=== PATIENT | female | born 1950 | race Hispanic/Latino ===

== ENCOUNTER 2018-12-09 08:55 | Outpatient (CLI) | payer MEDICARE ==
--- NOTE | 2018-12-10 15:45 | Mammography Report ---
BONE DEXA CLINICAL: Postmenopausal TECHNIQUE: 2 site bone DEXA performed on an Hologic scanner. FINDINGS: The average BMD of the lumbar spine L1-L4 is 0.823g/cm squared with a T score of -2.0 and a Z score o f -0.1. The average total BMD of the left hip is 0.631 g/cm squared with a T score of -2.5and a Z score of -1 .2. IMPRESSION: 1. WHO classification: Osteopenia with increased fracture risk based on spine measurements. 2. WHO classification Osteoporosis with high fracture risk based on left hip measurements. RECOMMENDATION: Clinical correlation and routine screening. Definitions: BMD equal bone mineral density T score = BMD related to peak bone mass of young adult (Bartholomew expressed an standard deviation) Z score = age-matched BMD expressed in SD World health organization (WHO) diagnostic criteria Normal T score greater than equal to 1 standard deviation Osteopenia T score between -1 and -2.4 standard deviation Osteoporosis T score -2.5 standard deviation or below. Note: BMD is not the only risk factor for fracture; also consider factors such as the patient's age, risk of falling, previous osteoporotic fracture, family history of osteoporotic fractures, current sm oker and low body weight. Z scores are not calculated if greater than 80 years of age. Signer Name: Daniel Pierre MD Signed: 12/09/2018 10:34 AM Workstation Name: [id number]
--- NOTE | 2018-12-10 15:45 | Mammography Report ---
BILATERAL DIGITAL SCREENING MAMMOGRAMS WITH CAD INDICATION: Screening. COMPARISONS: None available. However, she indicated that she had had a prior mammogram at [facility]. FINDINGS: Craniocaudal and mediolateral oblique views of both breasts were obtained using 2-D digital acquisition.In addition to standard review, the examination was analyzed for possible abnormalities using a computer-assisted detection device (iCAD). The breast tissue is heterogeneously dense, which may obscure small masses. Bilateral asymmetries require comparison with a prior mammogram or additional imaging. No architectur al distortion or suspicious calcifications. Bilateral benign arterial calcifications. IMPRESSION: Comparison with the previous mammogram is required. We will attempt to obtain a prior mammogram for c omparison. If we did not obtain a prior mammogram within 30 days, a revised report will be issued rec ommending a recall for additional imaging. Please be advised that the patient should not schedule an appointment for return until adequate time (at least 2 weeks) has passed breast to obtain the prior m ammogram. BI-RADS CATEGORY 0: INCOMPLETE - NEED ADDITIONAL IMAGING EVALUATION AND/OR PRIOR MAMMOGRAMS FOR COMP ARISON Information is entered into a reminder system for a target due date for the next mammogram. The resul ts and recommendations were sent to the patient by mail. Signer Name: Daniel Pierre MD Signed: 12/09/2018 10:30 AM Workstation Name: [id number]
== END 2018-12-09 08:56 | disposition home or self-care (01) ==
LOC: MAMMO 08:55
PROVIDERS: ATTEND Nurse Practitioner Family
DX: Z12.31 Encounter for screening mammogram for malignant neoplasm of breast (principal); Z13.820 Encounter for screening for osteoporosis; M81.0 Age-related osteoporosis without current pathological fracture; M85.88 Other specified disorders of bone density and structure, other site; Z78.0 Asymptomatic menopausal state
CPT/HCPCS: 77067; 77080